=== PATIENT | female | born 1950 | race Caucasian/White ===

== ENCOUNTER → 2017-05-06 | Outpatient (CLI) | payer MEDICARE, BC ==
[~2017-05-06] MED LIST: REGADENOSON 0.4 MG/5 ML DISP.SYRIN. IV ONE
--- NOTE | 2017-05-06 13:30 | PCVCIMAG ---
APPROVED REPORT Exam: Nuclear Stress Test Indication: SOA, CP, High Calcium Score Patient Location: Out-Patient Stress Nurse: Tricia Marsh RN [place] Tech:Delfinaconnie Willoughby [facility] Ht: 5 ft 2 in Wt: 200 lbs BSA: 1.91 m2 HR: 68 bpm BP: 164/77 mmHg BMI: 36.5 Rhythm: NSR Medical History Medical History: Age, Hyperlipidemia, HTN, DM-Insulin Medications: Atenolol, Xanax, Atorvastatin, Insulin, Supizide, Vascepa, Victaza, Metformin, Nitedipine, Protonix, Triamterine-HCTZ Allergies: NKDA Pretest Chest Pain Characteristics: No chest pain Exercise History: Physically active Meds Held (24 hrs): Atenolol Stress Test Details Stress Test: Pharmacologic stress testing performed using 0.4 mg of regadenoson per 5 mL given IV over 10 seconds. Reason for pharmacologic stress test: physical limitation. HR Resting HR: 68 bpmMax Heart Rate (APMHR): 155 bpm Max HR Achieved: 90 bpmTarget HR (85% APMHR): 131 bpm % of APMHR: 58 Recovery HR: 85 bpm BP Resting BP: 164/77 mmHg Max BP: 167/75 mmHg ECG Resting ECG: Sinus Rhythm, nonspecific ST-T abnormalities Stress ECG: Sinus Rhythm, nonspecific ST-T abnormalities ST Change: Non-ischemic Recovery ECG: Sinus Rhythm Clinical Reason for Termination: Completed protocol Stress Symptoms: Headache, Dyspnea Symptoms resolved with caffeine. NM EXAM: Myocardial Perfusion REST/STRESS Imaging Protocol: Rest Tc-99m/Stress Tc-99m 1 day Resting Data Rest SPECT myocardial perfusion imaging was performed in supine position 60 minutes following the intravenous injection of 16.4 mCi of Tc-99m Sestamibi. Time of rest injection: 824 Date: 05/06/2017 Pharmacologic Stress Pharmacologic stress test was performed by injecting Regadenoson 0.4 mg IV push followed by the intravenous injection of 43.8 mCi of Tc-99m Sestamibi. Time of stress injection: 1005 Date: 05/06/2017 The images were gated to evaluate regional wall motion and calculate left ventricular ejection fraction. Study Quality Study: Good Study Data Post stress, the left ventricular ejection was 71%.. SSS: 2 SRS: 0 SDS: 2 TID = 1.06. Perfusion There is a medium area of mildly reduced uptake in the distal segment of the anterior wall which is seen on the stress images and normalizes on the resting images. This area thickens and moves normally and is most consistent with ischemia. Wall Motion Normal left ventricular wall motion. Nuclear Conclusion ECG Findings: negative for ischemia Clinical Findings: non-diagnostic Nuclear Findings: positive for ischemia This study reveals ischemia in the distal anterior segment. There is normal global and segmental LV systolic function.
== END | disposition home or self-care (01) ==
LOC: PCVCIMAG 08:15
PROVIDERS: ATTEND Internal Medicine Cardiovascular Disease
DX: I25.10 Atherosclerotic heart disease of native coronary artery without angina pectoris (principal); I10 Essential (primary) hypertension; E11.9 Type 2 diabetes mellitus without complications; K52.9 Noninfective gastroenteritis and colitis, unspecified; I44.0 Atrioventricular block, first degree; I25.89 Other forms of chronic ischemic heart disease; E78.00 Pure hypercholesterolemia, unspecified; Z79.82 Long term (current) use of aspirin; Z79.84 Long term (current) use of oral hypoglycemic drugs; Z90.49 Acquired absence of other specified parts of digestive tract; Z90.710 Acquired absence of both cervix and uterus; Z79.4 Long term (current) use of insulin
CPT/HCPCS: 36415; 78452; 93017; A9500; G0463; J2785

== ENCOUNTER → 2017-05-13 | Outpatient (CLI) | payer MEDICARE, BC | END | disposition home or self-care (01) | LOC: PCVCCLINIC 09:43 | PROVIDERS: ATTEND Internal Medicine Cardiovascular Disease | DX: I25.10 Atherosclerotic heart disease of native coronary artery without angina pectoris (principal); I10 Essential (primary) hypertension; E78.00 Pure hypercholesterolemia, unspecified; R79.89 Other specified abnormal findings of blood chemistry | CPT/HCPCS: 36415 ==

== ENCOUNTER → 2019-01-28 | Outpatient (CLI) | payer MEDICARE, BC | END | disposition home or self-care (01) | LOC: PCVCCLINIC 09:20 | PROVIDERS: ATTEND Internal Medicine Cardiovascular Disease | DX: I10 Essential (primary) hypertension (principal); E78.00 Pure hypercholesterolemia, unspecified | CPT/HCPCS: 36415 ==

== ENCOUNTER → 2019-02-02 | Outpatient (CLI) | payer MEDICARE, BC | END | disposition home or self-care (01) | LOC: PCVCCLINIC 09:30 | PROVIDERS: ATTEND Internal Medicine Cardiovascular Disease | DX: I25.10 Atherosclerotic heart disease of native coronary artery without angina pectoris (principal); I10 Essential (primary) hypertension; E78.00 Pure hypercholesterolemia, unspecified; R60.9 Edema, unspecified; E11.9 Type 2 diabetes mellitus without complications; Z79.82 Long term (current) use of aspirin | CPT/HCPCS: 93005; G0463 ==